=== PATIENT | female | born 1980 | race Caucasian/White ===

== ENCOUNTER 2019-01-02 16:57 | Emergency (ER) | payer SELFPAY ==
[~2019-01-02] VITALS: Ht 144.8 cm; Wt 72.7 kg
[2019-01-02] MEDS ORDERED: KETOROLAC TROMETHAMINE 30 MG/ML VIAL IVP ONE (18:15)
[2019-01-02 20:59] VITALS: BP 131/77
== END 2019-01-02 21:25 | disposition home or self-care (01) ==
LOC: EMS 16:58
DX: S13.4XXA Sprain of ligaments of cervical spine, initial encounter (principal); V43.52XA Car driver injured in collision with other type car in traffic accident, initial encounter; Y93.89 Activity, other specified; Y92.89 Other specified places as the place of occurrence of the external cause; Y99.8 Other external cause status
CPT/HCPCS: 36415; 71045; 72125; 84702; 96374; 99284; J1885

== ENCOUNTER 2020-08-18 20:32 | Emergency (ER) | payer MEDICAID ==
[~2020-08-18] VITALS: Ht 162.6 cm; Wt 63.6 kg
[2020-08-18 20:35] VITALS: BP 144/81
== END 2020-08-18 21:20 | disposition left against medical advice (07) ==
LOC: EMS 20:32
DX: R21 Rash and other nonspecific skin eruption (principal); Z53.21 Procedure and treatment not carried out due to patient leaving prior to being seen by health care provider

== ENCOUNTER 2024-07-13 14:51 | Emergency (ER) | payer MEDICAID, OTHER ==
[~2024-07-13] VITALS: Ht 157.5 cm; Wt 72.7 kg
[2024-07-13 15:09] VITALS: BP 155/89; PULSE 102; RESP 18; TEMP 98; O2SAT 99
[2024-07-13] MEDS: IBUPROFEN 600 MG TABLET PO ONE (15:53)
[2024-07-13] MEDS: ACETAMINOPHEN 500 MG TABLET PO ONE (15:53)
[2024-07-13] MEDS: LIDOCAINE 1% 10 ML VIAL SQ ONE (15:54)
[2024-07-13] MEDS ORDERED: ACET-2080 PO (17:31)
[2024-07-13] MEDS ORDERED: IBUP-1554 PO (17:31)
[2024-07-13] MEDS ORDERED: BACI28.410 TP (17:31)
== END 2024-07-13 17:52 | disposition home or self-care (01) ==
LOC: EMS 14:51
DX: S61.305A Unspecified open wound of left ring finger with damage to nail, initial encounter (principal); S60.042A Contusion of left ring finger without damage to nail, initial encounter; F17.210 Nicotine dependence, cigarettes, uncomplicated; W23.0XXA Caught, crushed, jammed, or pinched between moving objects, initial encounter; Y93.89 Activity, other specified; Y92.89 Other specified places as the place of occurrence of the external cause; Y99.8 Other external cause status
CPT/HCPCS: 99283; 73140; 29130; J3490